=== PATIENT | female | born 1960 | race Caucasian/White ===

== ENCOUNTER 2017-05-08 12:49 | Day surgery (SDC) | payer BC ==
[~2017-05-08] VITALS: Ht 157.5 cm; Wt 93.7 kg
[~2017-05-08 12:49] MED LIST: DEXILANT PO
[2017-05-08 13:17] VITALS: Ht 157.5 cm; Wt 93.7 kg
[2017-05-08 13:32] VITALS: BP 130/76; PULSE 78; RESP 18
[2017-05-08] MEDS ORDERED: PROPOFOL 60 ML ONE (15:14)
--- NOTE | 2017-05-08 15:31 | OPPN ---
Date/Time of Note Date/Time of Note DATE: 05/08/17 TIME: 15:27 Proc Note GI Procedure Date 05/08/17 Pre-procedure Diagnosis * Gastric polyps Post-procedure Diagnosis Assessment: * Multitude of gastric polyps ranging in size from 5 mm to 2 cm * Post polypectomy 10 and retrieval of most polyps Plan: * Review pathology * Follow-up EGD plus polypectomy in 6-12 months Surgeon Damaris Baker MD Sanitizer none Anesthesia Type: MAC Anesthesiologist: JOSEPHINE MANCILLA MD EBL none Transfusion required none Polyp 1: Multiple gastric polyps Grafts/Implants none Complication(s) none Pt Condition post procedure: stable Disposition: home Indications: other (History of gastric polyps) Procedure Description After informed consent, with the patient/relatives understanding the procedure, its indications, potential risks and complications, including but not limited to : allergic reaction, bleeding, perforation or infection, and after all pertinent questions were answered to the patients satisfaction, the patient/ relatives signed witnessed informed consent. Following this, premedication was administered slowly IV push under careful cardiovascular and respiratory monitoring with pulse oximetry, automatic blood pressure, and youth nutritional monitor. Once the sedative effect was achieved the patient was place in the left lateral decubitus, the panendoscope was introduced and advanced under visual control. Careful examination of the upper gastrointestinal tract, both on insertion as well as withdrawal of the instrument disclosing the following findings: ESOPHAGUS: the mucosa of the entire esophagus was carefully examined and showed the following findings: the mucosa appears within normal limits. There is no evidence of esophagitis, varices, neoplasm, or stricture. No Hiatal Hernia identified. STOMACH: Upon entrance to the stomach air was insufflated, the gastric vicente distended normally. The mucosa of the fundus, body and antrum of the stomach was carefully examined both head-on and on retroflexion, and showed the following findings: There are multitude of polyps ranging in size from 5 mm to 2 cm. Ten largest polyps were removed with polypectomy snare with no residual bleeding or evidence of complication. Most of the polyps were retrieved. Otherwise the mucosa appears within normal limits with no abnormalities. There is no evidence of gastritis, ulcers or other neoplasm. PYLORUS: The pylorus was carefully examined and showed the following findings: the pylorus appears patent and within normal limits, with no evidence of gastric outlet obstruction. DUODENUM: The duodenal mucosa was carefully examined in the duodenal bulb as well as the second portion of the duodenum and showed the following findings: the mucosa appears unremarkable with no evidence of duodenitis, ulcer or neoplasm. Copies To: CC: WALTER BAKER MD, MORDO MD May 08, 2017 15:31
[2017-05-08 15:38] VITALS: BP 143/81; PULSE 82; RESP 14
== END 2017-05-08 18:33 | disposition home or self-care (01) ==
LOC: GIL 12:49
PROVIDERS: ATTEND Internal Medicine Gastroenterology
DX: K31.7 Polyp of stomach and duodenum (principal); E66.9 Obesity, unspecified; Z68.37 Body mass index [BMI] 37.0-37.9, adult; K21.9 Gastro-esophageal reflux disease without esophagitis
CPT/HCPCS: 43251; 88305; Z7610

== ENCOUNTER 2018-06-17 11:31 | Day surgery (SDC) | END 2018-06-17 14:51 | disposition home or self-care (01) ==